=== PATIENT | female | born 1935 | race Caucasian/White ===

== ENCOUNTER 2021-04-15 16:22 | Emergency (ER) | payer OTHER ==
[2021-04-15 16:44] VITALS: BP 177/95; PULSE 78; TEMP 99.3
[2021-04-15] MEDS ORDERED: ACETAMINOPHEN 325 MG TABLET (FP) PO ONE (17:08)
[2021-04-15] MEDS ORDERED: DIPHTH,PERTUSS(ACELL),TET 0.5 ML DISP.SYRIN IM ONE ×2 (17:09→17:10)
[2021-04-15] MEDS ORDERED: ACETAMINOPHEN 325 MG TABLET (FP) ONE (17:10)
== END 2021-04-15 19:56 | disposition home or self-care (01) ==
LOC: FER 16:22
PROC: 3E0234Z Introduction of Serum, Toxoid and Vaccine into Muscle, Percutaneous Approach (ICD-10-PCS; principal; 2021-04-15)
DX: S01.01XA Laceration without foreign body of scalp, initial encounter (principal)
CPT/HCPCS: 70450-TC; 72125-TC; 90471; 90715; 99284-25